=== PATIENT | male | born 1940 | race Caucasian/White ===

== ENCOUNTER 2022-05-12 08:00 | Outpatient (CLI) | payer SELFPAY ==
[2022-05-12 16:58] LABS: BASOPHILS # (AUTO) 0.1 10^3/uL (0.0-0.1); BASOPHILS % (AUTO) 0.7 %; EOSINOPHILS # (AUTO) 0.2 10^3/uL (0.0-0.7); EOSINOPHILS % (AUTO) 2.2 %; HCT - HEMATOCRIT 48.8 % (42.0-52.0); HGB - HEMOGLOBIN 15.9 g/dL (14.0-18.0); LYMPHOCYTES # (AUTO) 2.3 10^3/uL (1.5-3.5); MEAN CORPUSCULAR HGB CONC 32.6 g/dL (32.0-36.0); MEAN CORPUSCULAR VOLUME 98.2 fL (80.0-94.0); MEAN PLATELET VOLUME 10.7 fL (7.4-11.4); MONOCYTES # (AUTO) 0.8 10^3/uL (0.0-1.0); MONOCYTES % (AUTO) 9.4 %; NEUTROPHILS % (AUTO) 59.2 %; PLT - PLATELET COUNT 248 10^3/uL (130-450); RED BLOOD COUNT 4.97 10^6/uL (4.70-6.10); RED CELL DISTRIBUTION WIDTH 12.8 % (12.0-15.0); WHITE BLOOD COUNT 8.4 x10^3/uL (4.8-10.8)
[2022-05-12 17:19] LABS: ALBUMIN 4.2 g/dL (3.2-5.5); ALBUMIN/GLOBULIN RATIO 1.1 (1.0-2.2); ALKALINE PHOSPHATASE 53 IU/L (42-121); ALT ALANINE AMINOTRANSFERASE 14 IU/L (10-60); AST ASPARTATE AMINOTRANSFERASE 19 IU/L (10-42); BUN - BLOOD UREA NITROGEN 23 mg/dL (6-20); CALCIUM 8.5 mg/dL (8.5-10.3); CARBON DIOXIDE - CO2 25 mmol/L (21-32); CHLORIDE 104 mmol/L (101-111); CHOL/HDL RATIO 3.8 (<5.0); CHOLESTEROL 189 mg/dL; CREATININE 1.1 mg/dL (0.6-1.2); GFR - MDRD 64 (>89); GLUCOSE 81 mg/dL (70-100); HDL CHOLESTEROL 50 mg/dL; LDL CHOLESTEROL,CALCULATED 106 mg/dL; LDL/HDL RATIO 2.1 (<3.6); POTASSIUM 3.7 mmol/L (3.5-5.0); SODIUM 137 mmol/L (135-145); TRIGLYCERIDES 163 mg/dL; URIC ACID 7.4 mg/dL (2.6-7.2); VLDL CHOLESTEROL 33 mg/dL
[2022-05-12 17:22] LABS: PSA TOTAL 2.74 ng/mL (0.000-2.000)
[2022-05-12 17:59] LABS: PSA FREE 0.96 ng/mL (0.16-2.81)
== END 2022-05-12 23:59 | disposition home or self-care (01) ==
LOC: LAB.R 08:00
PROVIDERS: ATTEND Internal Medicine
DX: M25.50 Pain in unspecified joint (principal); Z12.5 Encounter for screening for malignant neoplasm of prostate; Z13.6 Encounter for screening for cardiovascular disorders; M79.676 Pain in unspecified toe(s)
CPT/HCPCS: 80053; 80061; 83721; 84153; 84154; 84443; 84550; 85025

== ENCOUNTER 2023-02-14 12:51 | Outpatient (CLI) | payer MEDICARE ==
--- NOTE | 2023-02-14 14:13 | XRAY Report ---
PROCEDURE: Knee 4 View LT INDICATIONS: LEFT KNEE PAIN TECHNIQUE: 4 views of the left knee(s) were acquired. COMPARISON: None. FINDINGS: Bones: No fractures or dislocations. No suspicious bony lesions. Mild tricompartmental knee joint d egeneration. There is minimal joint space narrowing with weightbearing. Soft tissues: Small knee joint effusion. No suspicious soft tissue calcifications or masses. IMPRESSION: 1. Mild osteoarthritis. 2. Small knee joint effusion. Reviewed by: Nish Gomez MD on 02/14/2023 2:12 PM PDT Approved by: Nish Gomez MD on 02/14/2023 2:12 PM PDT Station ID: [id number]
== END 2023-02-14 23:59 | disposition home or self-care (01) ==
LOC: DI.WOS 12:51
PROVIDERS: ATTEND Physician Assistant Surgical
DX: M17.12 Unilateral primary osteoarthritis, left knee (principal); M25.462 Effusion, left knee

== ENCOUNTER 2023-03-13 12:15 | Outpatient (CLI) | payer MEDICARE ==
--- NOTE | 2023-03-13 12:41 | XRAY Report ---
PROCEDURE: Chest 2 View X-Ray INDICATIONS: COUGH, VIRAL ILLNESS TECHNIQUE: 2 views of the chest were acquired. COMPARISON: None. FINDINGS: Surgical changes and devices: None. Lungs and pleura: No pleural effusions or pneumothorax. Lungs are clear. Mediastinum: Mediastinal contours appear normal. Heart size is enlarged. Bones and chest wall: No suspicious bony lesions. Overlying soft tissues appear unremarkable. IMPRESSION: No acute cardiopulmonary process. Reviewed by: Yudith Mace MD on 03/13/2023 12:40 PM PDT Approved by: Yudith Mace MD on 03/13/2023 12:40 PM PDT Station ID: [id number]
[2023-03-13 13:47] LABS: INFLUENZA A- RESP PCR PANEL NOT DETECTED; INFLUENZA B - RESP PCR PANEL NOT DETECTED; RSV- RESP PCR PANEL NOT DETECTED; SARS-CoV-2 -RESP PCR PANEL NOT DETECTED
== END 2023-03-13 12:16 | disposition home or self-care (01) ==
LOC: DI 12:15
PROVIDERS: ATTEND Internal Medicine
DX: R05.1 Acute cough (principal); R63.0 Anorexia; R53.83 Other fatigue; B34.9 Viral infection, unspecified
CPT/HCPCS: 87637